=== PATIENT | female | born 1965 | race Caucasian/White ===

== ENCOUNTER 2025-02-14 16:13 | Emergency (ER) | payer OTHER, SELFPAY ==
[2025-02-14 16:14] VITALS: BP 135/72; PULSE 78; RESP 16; TEMP 36.2; O2SAT 98; BMI 28.3
--- NOTE | 2025-02-14 16:15 | ED.WOUNDLAC ---
HPI - Wound/Laceration General Chief Complaint: Wound/Laceration Stated Complaint: right pinky laceration Time Seen by Provider: 02/14/25 16:18 Source: patient Mode of arrival: ambulatory Limitations: no limitations History of Present Illness ED Provider: Manisha Coates APRN HPI narrative: 59 yo female with a history of graves disease, HTN, right hand dominant here with complaints of skin avulsion to the right 5th digit from a mandolin. Tetanus not UTD Related Data Allergies Allergy/AdvReac Type Severity Reaction Status Date / Time No Known Allergies Allergy Verified 02/14/25 16:17 Review of Systems Review of Systems: Yes all other systems are reviewed and are negative Constitutional: Constitutional: Reports no additional constitutional complaints, Denies body ache(s), Denies chills, Denies fever(s), Denies headache(s) and Denies weakness Eyes: Eyes: Reports no additional eye complaints and Denies change in vision ENT: Reports system reviewed and no additional complaints, except as documented, Denies dizziness, Denies headache(s), Denies nasal congestion, Denies nasal discharge and Denies neck pain Cardiovascular: Cardiovascular: Reports no additional cardiovascular complaints, Denies chest pain, Denies leg edema and Denies dyspnea Respiratory: Respiratory: Reports no additional respiratory complaints, Denies cough and Denies dyspnea Gastrointestinal: Gastrointestinal: Reports no additional gastrointestinal complaints, Denies abdominal pain, Denies diarrhea, Denies nausea and Denies vomiting Genitourinary: Genitourinary: Reports no additional female genitourinary complaints and Denies urinary incontinence Musculoskeletal: Musculoskeletal: Reports no additional musculoskeletal complaints, Denies back pain, Denies arthralgias, Denies joint swelling, Denies neck pain, Denies numbness and Denies tingling Integumentary/Breasts: Skin/Breast: Reports system reviewed and no additional complaints, except as docu, Denies rash and Reports wounds Neurologic: Reports system reviewed and no additional complaints, except as documented, Denies Abnormal speech present, Denies dizziness, Denies headache(s), Denies numbness, Denies tingling and Denies weakness PMFSH Past Medical History Attestation statement: The following information was validated with the patient. Source: old records reviewed and nursing notes reviewed Social History Social History Advance Directives: No Advance Directives Information Provided: No Physical Exam Vital Signs: Vital Signs: Last Vital Signs Temp 97.2 F 02/14/25 16:14 Pulse 78 02/14/25 16:14 Resp 16 02/14/25 16:14 BP 135/72 02/14/25 16:14 Pulse Ox 98 02/14/25 16:14 O2 Del Method Room Air 02/14/25 16:14 BMI result Body Mass Index 28.3 Const: General: cooperative, healthy appearing, comfortable and no acute distress Orientation/consciousness: patient oriented x3 Limitations: no limitations HEENT: Head: Yes normal to inspection Ears: hearing grossly normal bilaterally General nose exam: Normal external nose present Face and sinus: Yes normal facial exam Mouth: Normal oral and palatal mucosa present Throat: Yes posterior oropharynx normal Eyes: General: appearance normal, both eyes and all related structures Pupils: Equal, round and reactive pupils present Neck: Neck: Yes normal visual inspection Chest: Chest palpation & inspection: normal inspection of the chest Resp: Effort & Inspection: normal respiratory effort Auscultation: clear to auscultation bilaterally Cardio: Rate: regular rate Rhythm: regular rhythm Peripheral pulses: Peripheral pulses 2+ throughout GI: Inspection: Yes normal to inspection Palpation (GI): Soft to palpation and nontender Auscultation: normal bowel sounds Back/Spine/Pelvis: Thoracic/Lumbar Spine: thoracic and lumbar spine normal to inspection Skin: General skin exam: no rashes or lesions noted Neuro: General: patient oriented x3, no focal motor deficits and normal sensation to monofilament Cranial nerves: Yes Equal, round and reactive pupils present Cognition (Neuro): normal cognition Speech: No Abnormal speech present Gait exam (Neuro): Normal gait present Motor exam (neuro): 5/5 motor strength present throughout Extrem: Other: Bleeding is controlled. Full active and passive range of motion of the digit. Sensation is normal. Skin is pink and warm Course Course Course Narrative: Manisha Coates COMPUTER INFORMATION SYSTEMS PROFESSOR 02/14 161 This is a rapid medical exam. Deferred additional HPI, ROS, PE to primary provider. 59 yo female with a history of graves disease, HTN, right hand dominant here with complaints of skin avulsion to the right 5th digit. There appears to be a avulsion of the skin. No need for suturing. Medications Administered Discontinued Medications Generic Name Dose Route Start Last Admin Trade Name Freq PRN Reason Stop Dose Admin Diphtheria/Tetanus/Acell Pertussis 0.5 ml 02/14/25 16:18 02/14/25 16:28 Diphth,Pertus(Acell),Tet Adult 0.5 Ml Syringe IM 02/14/25 16:19 0.5 ml .ONCE ONE Administration Ibuprofen 600 mg 02/14/25 16:18 02/14/25 16:28 Ibuprofen 600 Mg Tablet PO 02/14/25 16:19 600 mg ONCE ONE Administration Medical Decision Making Medical Decision Making MDM Narrative: 59 yo female with a history of graves disease, HTN, right hand dominant here with complaints of skin avulsion to the right 5th digit from a mandolin. Tetanus not UTD See PE for exam Tetanus updated. Analgesia provided No bony tenderness. No reports of any injury or crushed of the digit. I do not believe that imaging is warranted. The area was cleansed with saline and antiseptic. Xeroform was applied to the wound bed with a non-stick dressing, Kerlix and finger splint. Recommend patient follow-up outpatient with primary care. Reviewed worrisome signs and symptoms of when to return to the emergency room. Comfortable plan for discharge home. Differential Diagnosis Differential Diagnoses: The differential diagnosis associated with the presentation includes skin avulsion, laceration Admission/Observation Consideration of admission/observation: Escalation of care including admission/observation considered Independent Historian Clinical information obtained from an independent historian. History obtained from or confirmed by: Friend Tests considered The following testing was considered but not selected: X-ray Prescription Management I considered prescription management with: Antibiotic Procedures Laceration Laceration 1: Site: hand (5th finger) Side (If applicable): right Description: irregular Pre-repair: wound explored and irrigated extensively (1 L of saline and Betadine) Discharge Plan Discharge Clinical Impression: Avulsion of skin Patient Disposition: Home, Self-Care Instructions: Skin Avulsion (ED) Additional Instructions: Remove the dressing and wash the area with soap and water daily. Then re-apply the dressing as shown. Take Motrin or Tylenol for pain as needed Monitor for signs of infection such as redness, drainage, swelling or increased pain and seek additional care as needed Referrals: Physician,None [Primary Care Provider, Medical] Stand Alone Forms: Work/School Release Discharge Date/Time: 02/14/25 16:55 Print Language: Kazakh
[2025-02-14] MEDS: Diphth,Pertus(ACell),Tet Adult 0.5 ML SYRINGE IM (16:28)
== END 2025-02-14 16:55 | disposition home or self-care (01) ==
PROVIDERS: Emergency Provider Emergency Medicine
DX: S61.216A Laceration without foreign body of right little finger without damage to nail, initial encounter (principal); W26.8XXA Contact with other sharp object(s), not elsewhere classified, initial encounter; Y93.G3 Activity, cooking and baking; Y92.9 Unspecified place or not applicable; Y99.9 Unspecified external cause status; E05.00 Thyrotoxicosis with diffuse goiter without thyrotoxic crisis or storm; I10 Essential (primary) hypertension
CPT/HCPCS: 90471; 90715; 99282; 99284